=== PATIENT | female | born 1955 | race Asian ===

== ENCOUNTER 2017-05-16 07:20 | Day surgery (SDC) | payer OTHER ==
[~2017-05-16] VITALS: Ht 160 cm; Wt 54.4 kg
[2017-05-16] MEDS ORDERED: MIDAZOLAM 2 MG/2 ML VIAL ONE (09:09)
[2017-05-16] MEDS ORDERED: fentaNYL 0.05 MG/ML VIAL ONE (09:10)
[2017-05-16] MEDS ORDERED: fentaNYL 0.05 MG/ML VIAL IVP ONE (15:45)
[2017-05-16] MEDS ORDERED: MIDAZOLAM 2 MG/2 ML VIAL IVP ONE (15:45)
== END 2017-05-16 10:01 | disposition home or self-care (01) ==
LOC: MMU 07:20 → MDS 07:20
PROVIDERS: ATTEND Internal Medicine Gastroenterology
DX: Z12.11 Encounter for screening for malignant neoplasm of colon (principal); Z98.890 Other specified postprocedural states
CPT/HCPCS: 45378; J2250; J3010